=== PATIENT | male | born 1990 ===

== ENCOUNTER 2018-11-10 10:08 | Outpatient (CLI) | payer OTHER ==
--- NOTE | 2018-11-10 11:17 | ULT ---
VENOUS DUPLEX SONOGRAM LEFT LOWER EXTREMITY: HISTORY: Left leg pain and edema. TECHNIQUE: The left common femoral vein and greater saphenous junction were evaluated, along with the femoral, d eep femoral, popliteal, and posterior tibial veins. FINDINGS: There is good color and spectral Doppler flow, compression, and augmentation. IMPRESSION: No sonographic evidence of deep venous thrombosis within the left lower extremity. POS: CET
== END 2018-11-10 10:09 | disposition home or self-care (01) ==
LOC: BICULT 10:08
PROVIDERS: ATTEND Orthopaedic Surgery
DX: S82.445A Nondisplaced spiral fracture of shaft of left fibula, initial encounter for closed fracture (principal)